=== PATIENT | male | born 1960 | race Caucasian/White ===

== ENCOUNTER 2019-06-26 20:45 | Emergency (ER) | payer MEDICAID ==
[~2019-06-26] VITALS: Ht 185.4 cm; Wt 93.2 kg
[2019-06-26 21:01] VITALS: Ht 185.4 cm; Wt 93.2 kg
[2019-06-26] MEDS ORDERED: BLOOD PRESSURE MED (21:02)
[2019-06-26] MEDS ORDERED: MUPIROCIN22 GM TOPICAL (21:47)
[2019-06-26 22:27] VITALS: BP 124/67
== END 2019-06-26 22:28 | disposition home or self-care (01) ==
LOC: D.ER 20:45
DX: S80.811A Abrasion, right lower leg, initial encounter (principal); X58.XXXA Exposure to other specified factors, initial encounter; I10 Essential (primary) hypertension

== ENCOUNTER 2019-08-08 17:53 | Inpatient (IN) | payer MEDICAID ==
[2019-08-08] VITALS (8 sets, daily range): BP systolic 88–125; BP diastolic 34–65
[~2019-08-08] VITALS: Ht 185.4 cm; Wt 108.6 kg
--- NOTE | ~2019-08-08 | EC ---
PATIENT:LUIS REGAN DATE OF SERVICE: 08/08/19 SEX: M MEDICAL RECORD: [id number] DATE OF : 62 LOCATION:[facility] D230 AGE OF PATIENT: 59 ADMISSION DATE: 08/08/19 REFERRING PHYSICIAN: INTERPRETING PHYSICIAN: ELA KRAMER MD ECHOCARDIOGRAM REPORT ECHO CHARGES 4 ECHO COMPLETE Date: 08/09/19 CLINICAL DIAGNOSIS: HYPOTENTION ECHOCARDIOGRAPHIC MEASUREMENTS (adult normal given) AC root (d.<3.7cm) 3.4 cm LV Septum d (<1.2 cm> 1.4 cm Valve Excursion 2.1 cm LV Septum (systole) 1.6 cm Left Atria (s.<4.0cm> 3.9 cm LVPW d(<1.2cm) 1.2 cm RV (d.<2.3cm) 2.2 cm LVPW (sytole) 1.4 cm LV diastole(<5.6CM) 4.3 cm MV E-F(>70mm/sec) cm LV systole 3.0 cm LVOT Diameter 1.5 cm MV exc.(>10mm) cm Est.ejection fraction (50-75%) % DOPPLER: LVIT cm/sec A 38 cm/sec E 50 cm/sec LA cm/sec RVSP 20.8 mmHg LVOT 84 cm/sec AOP1/2T m/s Asc. Ao 97 cm/sec RVOT 47 cm/sec RA cm/sec PA 66 cm/sec AV Gradient Peak 3.8 mmHg AV Mean 1.9 mmHg AV Area 1.3 cm MV Gradient Peak 1.4 mmHg MV Mean 0.7 mmHg MV Area cm COMMENTS: Pit Worker Power Shovel: Sherif RHOADES Gravedigger: 2 Dr. Mckeon TAPE# PACS Pericardial Effusion Y DATE OF SERVICE: ECHOCARDIOGRAM FINDINGS: 1. Left ventricular chamber size is within normal limits. Left ventricular systolic function is lower limits of normal at 45% to 50%. 2. Left atrium is within normal limits. Right atrium and right ventricle chamber sizes are mildly dilated. 3. Valvular structures have normal structure and motion. ECHOCARDIOGRAM REPORT [id number] LUIS REGAN 4. Doppler interrogation reveals no significant valvular insufficiency or stenosis. 5. No evidence of pericardial effusion or left ventricular thrombus. TRANSINT:[id number] Voice Confirmation ID: [id number] DOCUMENT ID: [id number] ELA KRAMER MD CC: [id number] DICTATION DATE: 08/10/19 1004 C 40A CREW CHIEF: 08/10/19 1231 ADM IN [facility] [address] [id number]
--- NOTE | ~2019-08-08 | CN ---
PATIENT NAME:LUIS REGAN MEDICAL RECORD: [id number] : 62 LOCATION:[id number] ADMIT DATE: 08/08/19 ACCOUNT: [id number] CONSULTING PHYSICIAN: ELA KRAMER MD REFERRING PHYSICIAN: ALEJANDRO GRACE MD DATE OF CONSULTATION: 08/09/2019 ADMITTING DIAGNOSES: 1. Hypotension. 2. Hypovolemic shock. 3. Abnormal ECG for ischemia. 4. Coronary artery disease. 5. Previous percutaneous transluminal coronary angioplasty stent. 6. Gastrointestinal bleed. 7. Anemia. HISTORY OF PRESENT ILLNESS: This is a gentleman who presents with esophageal varices bleeds from ETOH. He has received multiple units of blood. He remains hypotensive and remains actively bleeding. He has a history of coronary artery disease. EKG shows anterolateral ischemia. PHYSICAL EXAMINATION: CONSTITUTIONAL/GENERAL APPEARANCE: Well nourished, well developed, appears stated age. EYES: Lids and conjunctivae noninjected. No discharge. No pallor. ENT: Lips within normal limit. No cyanosis. No pallor. NECK: Carotid arteries, bilateral normal upstroke. No bruits. No thrills. No jugular venous pressure or distention. CERVICAL LYMPH NODES: Nontender. Nonenlarged. THYROID: Not enlarged. No nodules. CARDIOVASCULAR: Precordial exam, nondisplaced. No heaves or pericardial thrills. Rate and rhythm, regular. Heart sounds, normal S1, normal S2. No S3, no gallop, no rub. Systolic murmur, not heard. Diastolic murmur, not heard. RESPIRATORY: Respiratory effort, unlabored. Normal curvature. No thoracic deformity. No chest wall tenderness. Percussion, resonant. Auscultation, clear. No wheezes, no rales, no rhonchi. ABDOMEN: Soft, nondistended, nontender. No abdominal pain, no vomiting and normal appetite. MUSCULOSKELETAL: No joint tenderness, normal gait, normal tone. SKIN: Warm and dry. OVERALL IMPRESSION: Ischemia secondary to hypovolemia as well as the anemia. At this time, we will get an echocardiogram. No other cardiac workup or treatment is necessary. Overall prognosis is extremely poor. TRANSINT:[id number] Voice Confirmation ID: [id number] DOCUMENT ID: [id number] CONSULT REPORT [id number] LUIS REGAN JEFFREY MD CC: [id number] DICTATION DATE: 08/09/19 1225 FOOD SERVICES COORDINATOR: 08/09/19 181 ADM IN [place] [id number] [place] [id number]
[~2019-08-08 17:53] MED LIST: BLOOD PRESSURE MED; MUPIROCIN22 GM TOPICAL
[2019-08-08 18:22] LABS: BASOPHILS 0 % (0-2); EOSINOPHILS 0 % (0-7); HEMOGLOBIN 11.3 g/dL (13.5-17.5); IMMATURE GRANULOCYTES 0.4 % (0-5); LYMPHOCYTES 8.5 % (15-50); MCH 35.2 pg (26.0-34.0); MCHC 34.2 g/dL (31.0-37.0); MCV 102.8 fL (80.0-100.0); MEAN PLATELET VOLUME 11.8 fL (7.4-10.4); MONOCYTES 4.6 % (2-11); NEUTROPHILS 86.5 % (40-80); PLATELET COUNT 124 10x3/uL (130-400); RBC 3.21 10x6/uL (4.20-6.10); RDW 14.8 % (11.5-14.5); WBC 10.5 10x3/uL (4.8-10.8)
[2019-08-08 18:30] LABS: INR 1.52 (0.85-1.17); PROTIME 17.8 SECONDS (11.6-15.0)
[2019-08-08 18:31] LABS: APTT 32.3 SECONDS (22.8-39.4)
[2019-08-08 18:38] LABS: ANION GAP 12.7 mmol/L (8-16); CALCIUM 7.9 mg/dL (8.5-10.1); CARBON DIOXIDE 22.9 mmol/L (21.0-32.0); CREATININE - SERUM 1.2 mg/dL (0.6-1.3); POTASSIUM - SERUM 4.6 mmol/L (3.5-5.1)
[2019-08-08 18:44] LABS: BILIRUBIN - TOTAL 1.84 mg/dL (0.2-1.3); MAGNESIUM - SERUM 1.9 mg/dL (1.8-2.4); PROTEIN - SERUM 6.8 g/dL (6.4-8.2)
--- NOTE | 2019-08-08 19:01 | NUR ---
PT SITTING ON BED. PT C/O ABD PAIN AND ARTHUR. NO S/S OF ACUTE DISTRESS NOTED. PT DENIES VOMITING SINCE ARRIVAL IN ED.
--- NOTE | 2019-08-08 19:32 | NUR ---
PT LEFT ED VIA STRETCHER FOR CT.
--- NOTE | 2019-08-08 19:52 | NUR ---
PT RETURNED FROM CT VIA STRETCHER.
--- NOTE | 2019-08-08 21:27 | NUR ---
PT REPORTS PAIN HAS RETURNED AND IS WORSE THAN BEFORE. PT AWAKE AND ALERT. EDP NOTIFIED.
--- NOTE | 2019-08-08 22:51 | NUR ---
PT ACTIVELY VOMITING BLOOD AT THIS TIME, APPROX 600ML BLOODY EMESIS NOTED IN EMESIS BAG. EDP HUMBERTO NOTIFIED. CALL TO SARAH AYERS PLACED AT THIS TIME.
--- NOTE | 2019-08-08 22:55 | NUR ---
PT PLACED ON 2L O2 VIA NC. PT SITTING UPRIGHT IN BED.
--- NOTE | 2019-08-08 23:02 | NUR ---
SECOND IV STARTED TO PT L WRIST. PT TOLERATED WELL. PT UPDATED ON PLAN OF CARE.
--- NOTE | 2019-08-08 23:48 | NUR ---
RN AT BEDSIDE TO TRANSPORT PT TO ICU. PT PROCEEDED TO VOMIT 1300ML BLOODY EMESIS.
--- NOTE | 2019-08-08 23:55 | NUR ---
REC'D TO ROOM 2303 FROM ER. PT AWAKE, WEAK, PALE. ICU MONITORS ESTAB. B/P 87/47. MACHINE TOOL MECHANIC PER FLOWSHEET. NEW ORDERS REC'D.
[2019-08-09] VITALS (121 sets, daily range): BP systolic 34–161; BP diastolic 20–96; Ht 185.4 cm; Wt 108.6 kg
--- NOTE | 2019-08-09 00:30 | NUR ---
PT WITH EMESIS OF 350ML DARK RED BLOOD.
--- NOTE | 2019-08-09 00:40 | NUR ---
BEGIN BLOOD PRODUCT TRANSFUSIONS PER MD ORDER PER HOSPITAL PROTOCOL. SEE TRANSFUSION SHEETS.
--- NOTE | 2019-08-09 01:26 | NUR ---
UPDATE CALLED TO DR. READ, NEW ORDERS RECEIVED
--- NOTE | 2019-08-09 01:40 | NUR ---
OK TO INCREASE LEVOPHED TO 30 MCG/KG AT THIS TIME, PER DR READ
[2019-08-09 01:52] LABS: HEMATOCRIT 20.2 % (42.0-54.0); HEMOGLOBIN 6.6 g/dL (13.5-17.5)
--- NOTE | 2019-08-09 02:09 | NUR ---
UPDATE CALLED TO DR. READ, NEW ORDERS RECEIVED
--- NOTE | 2019-08-09 02:45 | NUR ---
DR. READ HERE. PT HR DROPPED TO 80S AND PT BECAME UNRESPONSIVE WITH AGONAL RESP. CODE BLUE CALLED AT 0250. SEE CODE BLUE SHEET.
--- NOTE | 2019-08-09 03:08 | NUR ---
SPOKE WITH LUIS STAUFFER - PT EMERGENCY CONTACT FROM [facility]. UPDATED ON PT CONDITION.
--- NOTE | 2019-08-09 03:53 | NUR ---
SPOKE WITH DAUGHTER ÁNGELA AGEE (NEXT OF KIN). UPDATED ON PT CRITICAL CONDITION. SHE IS ON HER WAY HERE FROM [place].
--- NOTE | 2019-08-09 04:02 | NUR ---
DR. GRACE UPDATED ON PT CONDITION. EGD NOW FINISHED.
--- NOTE | 2019-08-09 04:30 | NUR ---
R IJ CVL AND L RADIAL A-LINE PLACED BY Monik LERMA CRNA.
--- NOTE | 2019-08-09 05:00 | NUR ---
UPDATE CALLED TO DR. GRACE, NEW ORDERS RECIEVED
--- NOTE | 2019-08-09 05:00 | NUR ---
SEIZURE ACTIVITY NOTED, ATIVAN PER MD ORDER GIVEN. POST SEIZURE PUPILS NOTED TO BE 7 AND FIXED - DR. GRACE AWARE.
--- NOTE | 2019-08-09 06:00 | NUR ---
CONT BLOOD PRODUCTS PER MD ORDER. SEE BLOOD TRANSFUSION SHEETS.
[2019-08-09 06:35] LABS: BASOPHILS 0.2 % (0-2); EOSINOPHILS 1.2 % (0-7); HEMATOCRIT 23.6 % (42.0-54.0); IMMATURE GRANULOCYTES 7.8 % (0-5); LYMPHOCYTES 18.9 % (15-50); MCH 29.8 pg (26.0-34.0); MCHC 30.9 g/dL (31.0-37.0); MEAN PLATELET VOLUME 13.2 fL (7.4-10.4); MONOCYTES 8.9 % (2-11); RBC 2.45 10x6/uL (4.20-6.10); RDW 14.6 % (11.5-14.5); WBC 16.5 10x3/uL (4.8-10.8)
[2019-08-09 06:36] LABS: HEMOGLOBIN 7.3 g/dL (13.5-17.5); MCV 96.3 fL (80.0-100.0); PLATELET COUNT 16 10x3/uL (130-400)
[2019-08-09 06:58] LABS: CALCIUM 7.9 mg/dL (8.5-10.1); CARBON DIOXIDE 10.9 mmol/L (21.0-32.0)
--- NOTE | 2019-08-09 07:00 | NUR ---
REPORT RECEIVED. ASSESSMENT COMPLETE PER FLOW SHEET
--- NOTE | 2019-08-09 07:04 | NUR ---
PT STATUS REPORT AND CRITICAL LABS CALLED TO DR. READ. NEW ORDER REC'D.
[2019-08-09 07:06] LABS: MAGNESIUM - SERUM 2.5 mg/dL (1.8-2.4)
[2019-08-09 07:07] LABS: ANION GAP 35.1 mmol/L (8-16); CREATININE - SERUM 1.9 mg/dL (0.6-1.3); PHOSPHOROUS 12.2 mg/dL (2.5-4.9)
--- NOTE | 2019-08-09 08:10 | NUR ---
FAMILY AT BEDSIDE
--- NOTE | 2019-08-09 09:40 | NUR ---
DR READ PAGED GIVEN UPDATE. NO NEW ORDERS
--- NOTE | 2019-08-09 10:21 | NUR ---
ERIC CALLED TO NOTIFY OF PT STATUS. SPOKE WITH EDUARD. RECORDS REVIEWED. WILL HAVE A COORDINATOR CALL
[2019-08-09 10:23] LABS: HEMATOCRIT 26.6 % (42.0-54.0); HEMOGLOBIN 8.5 g/dL (13.5-17.5)
--- NOTE | 2019-08-09 10:29 | NUR ---
KAPIL REYES CALLED FOR ADDITIONAL INFORMATION. BP REVIEWED. ASKED TO BE NOTIFIED AT TOD.
--- NOTE | 2019-08-09 11:20 | NUR ---
DR HEDRICK AT BEDSIDE GIVEN UDPATE. NEW ORDERS RECEIVED. WILL ADM
[2019-08-09 12:12] LABS: INR 12.67 (0.85-1.17); PROTIME 95.3 SECONDS (11.6-15.0)
--- NOTE | 2019-08-09 12:15 | NUR ---
Critical Result Type: PT Critical Result Value: 95.3 Time Nurse Notified: 1212 Name of Physician and Time Called: DR HEDRICK 121 Physician Notified at: 1215 Physician NOT Notified with Reason: Comments: 2 U FFP ORDERED Read Back and Verified By: BLANCO DEXTER RN Critical Result Type: INR Critical Result Value: 12.67 Time Nurse Notified: 1212 Name of Physician and Time Called: DR HEDRICK 1215 Physician Notified at: 1215 Physician NOT Notified with Reason: Comments: 2 U FFP ORDERED Read Back and Verified By: BLANCO DEXTER RN Critical Result Type: PTT Critical Result Value: >200 Time Nurse Notified: 1212 Name of Physician and Time Called: DR HEDRICK 121 Physician Notified at: 1215 Physician NOT Notified with Reason: Comments: 2 U FFP ORDERED Read Back and Verified By: BLANCO DEXTER RN
--- NOTE | 2019-08-09 12:23 | NUR ---
DR KRAMER AT BEDSIDE GIVEN UDPATE. NO NEW ORDERS
--- NOTE | 2019-08-09 12:56 | NUR ---
Critical Result Type: TROPONIN Critical Result Value: 2.532 Time Nurse Notified: 1149 Name of Physician and Time Called: DR KRAMER Physician Notified at: 1210 Physician NOT Notified with Reason: Comments: ECHO ORDERED NO FURTHER NEW ORDERS AT THIS TIME Read Back and Verified By: SHAYE WAGNER/JOSÉ MANUEL VERDUGO
--- NOTE | 2019-08-09 13:15 | NUR ---
RECEIVED MED CODE ONLY STATUS FROM SISTER VERIFIED WITH SHAYE CHO RN
--- NOTE | 2019-08-09 14:50 | NUR ---
PT TO CTA AT THIS TIME
--- NOTE | 2019-08-09 15:00 | NUR ---
REASSESSMENT COMPLETE PER FLOW SHEET. NO NEW CHANGES
--- NOTE | 2019-08-09 19:00 | NUR ---
REC'D TO CARE, BLACK MILL OPERATOR PER FLOWSHEET. PT ON MECH VENT VIA OETT. UNRESPONSIVE. SBP 60-70, IVF GTTS PER FLOWSHEET - ALL MAXED. PT IS MED CODE. CM - CAF, WIDE QRS. PT EDEMATOUS, MOTTLED, AND BLEEDING FROM NOSE AND MOUTH. PIV X 2 AND L IJ CVL PRESENT WITH GTTS INFUSING. IRIZARRY CATH WITH NO OUTPUT NOTED. PULSES DOPPLERABLE. ALARMS ON AND WILL CONT POC.
--- NOTE | 2019-08-09 19:30 | NUR ---
BEGIN FFP TRANSFUSION PER MD ORDER PER HOSPITAL POLICY - SEE TRANSFUSION SHEETS.
--- NOTE | 2019-08-09 20:19 | NUR ---
SISTER AT , UPDATE GIVEN AND QUESTIONS ANWERED.
--- NOTE | 2019-08-09 22:37 | NUR ---
H/H RESULTED - STANDING ORDERS FOLLOWED.
[2019-08-09 22:57] LABS: HEMATOCRIT 10.2 % (42.0-54.0); HEMOGLOBIN 3.2 g/dL (13.5-17.5)
--- NOTE | 2019-08-09 23:03 | NUR ---
BEGIN PRBC TRANSFUSION PER MD ORDERS, PER HOSPITAL POLICY. SEE TRANSUSION SHEETS.
--- NOTE | 2019-08-09 23:15 | NUR ---
REASSESSMENT PER FLOWSHEET, PRBCS INFUSING WITHOUT DIFFICULTY, NO SIGN OF ADVERSE RXN. CONT BLEEDING FROM NOSE AND MOUTH. PADS/LINENS CHANGED NEEDED.
[2019-08-10] VITALS (45 sets, daily range): BP systolic 52–97; BP diastolic 21–84
--- NOTE | 2019-08-10 03:11 | NUR ---
REASSESSMENT PER FLOWSHEET, NO ACUTE CHANGES.
--- NOTE | 2019-08-10 03:50 | NUR ---
COMPLETE BATH AND LINEN CHANGE DONE.
--- NOTE | 2019-08-10 04:15 | NUR ---
ABGS RESULTED, FIO2 TO 60% PER R.T.
[2019-08-10 05:14] LABS: BASOPHILS 0.7 % (0-2); EOSINOPHILS 0.7 % (0-7); IMMATURE GRANULOCYTES 1.4 % (0-5); LYMPHOCYTES 26.8 % (15-50); MCH 30.3 pg (26.0-34.0); MCHC 30.6 g/dL (31.0-37.0); MEAN PLATELET VOLUME 9.7 fL (7.4-10.4); MONOCYTES 8.5 % (2-11); NEUTROPHILS 61.9 % (40-80); RDW 16.1 % (11.5-14.5)
[2019-08-10 05:27] LABS: BILIRUBIN - TOTAL 1.44 mg/dL (0.2-1.3); HEMATOCRIT 9.8 % (42.0-54.0); MAGNESIUM - SERUM 2.5 mg/dL (1.8-2.4); PLATELET COUNT 40 10x3/uL (130-400); POTASSIUM - SERUM 4.5 mmol/L (3.5-5.1); RBC 0.99 10x6/uL (4.20-6.10); WBC 1.4 10x3/uL (4.8-10.8)
--- NOTE | 2019-08-10 05:30 | NUR ---
BEGIN PRBC PER STANDING ORDER, PER HOSPITAL PROTOCOL FOR HGB 3.
[2019-08-10 05:32] LABS: PHOSPHOROUS 16.5 mg/dL (2.5-4.9)
[2019-08-10 05:33] LABS: ALBUMIN 0.3 g/dL (3.4-5.0); ANION GAP 36.6 mmol/L (8-16); CALCIUM 6.7 mg/dL (8.5-10.1); CARBON DIOXIDE 8.9 mmol/L (21.0-32.0); CREATININE - SERUM 2.4 mg/dL (0.6-1.3)
[2019-08-10 05:35] LABS: INR 13.4 (0.85-1.17); PROTIME 99.6 SECONDS (11.6-15.0)
--- NOTE | 2019-08-10 06:15 | NUR ---
DR. ALMEIDA PAGED RE: CRITICAL LABS.
--- NOTE | 2019-08-10 06:58 | NUR ---
DR READ PAGED REGAURDING CRITICAL LABS AND CRITICAL VS. AWAITING CALL BACK.
--- NOTE | 2019-08-10 07:10 | NUR ---
DR READ CALLED BACK REGAURDING H/H AND SBP50 2L LR BOLUS ORDERED AND CONTINUE WITH 2UPRBC. STATED WAS ON HIS WAY TO SPEAK WITH FAMILY
--- NOTE | 2019-08-10 07:30 | NUR ---
DR READ AT BEDSIDE GIVEN UPDATE. SPOKE TO FAMILY AT GREAT LENGTH. STATED FROM GI STANDPOINT PT TOO UNSTABLE FOR EGD OR IR TO TREAT. NURSE EXPLAINED THAT EVEN IF YOU TOOK AWAY GI BLEED PT STILL HAD A TEMP OF 78 DEGREES F AND HIS BP HAS REMAINED BELOW 60 SYSTOLIC FOR PAST 24H WITH EXTREME LIFE SAVING MEASURES AND PRESSURE MEDICATION CONTINUOUSLY INFUSING THAT THIS IN ITSELF WAS INCOMPATIBLE WITH LIFE AND WE ARE ALL UNSURE IF ORGAN DAMAGE HAS BEEN DONE OR IF PT HAS BRAIN DAMAGE R/T NO PERFUSION WITH SBP SO LOW. STATED UNDERSTANDING AND STATED UNSURE OF OPTIONS AT THIS TIME. DR READ EXPLAINED OPTIONS, SISTER PATY STATED UNDERSTANDING, BUT AT THIS TIME TO REMAIN ON CURRENT COURSE UNTIL FURTHER FAMILY ARRIVES.
--- NOTE | 2019-08-10 08:50 | NUR ---
PATY STATED AT THIS TIME "FEELS IF HE WAS GONE YESTERDAY" AND THAT SHE WAS CALLING IN SOME FAMILY AND WOULD UPDATE ME WHEN SHE WAS READY TO GO TO COMFORT MEASURES.
--- NOTE | 2019-08-10 11:55 | NUR ---
ATROPINE AND EPI HELD PER FAMILY REQUEST DNR STATUS MADE AT THIS TIME COMFORT MEASURES INITIATED. NO PULSE PRESENT HR [address] ALMEIDA PAGED GIVEN UPDATE
--- NOTE | 2019-08-10 12:10 | NUR ---
PT PRONOUNCED AT THIS TMIE
--- NOTE | 2019-08-10 12:40 | NUR ---
BILL CALLED GIVEN UPDATE REF# GIVEN
--- NOTE | 2019-08-10 12:50 | NUR ---
HOME PAGED AWAITING ARRIVAL
--- NOTE | 2019-08-10 14:50 | NUR ---
HOME AT BEDSIDE LEFT VIA GURNEY. NEEDS MET
== END 2019-08-10 15:14 | DRG 356 ==
LOC: D.ER 17:53 → D.ICU 21:33
PROVIDERS: Emergency Medicine; Family Medicine; Internal Medicine Gastroenterology; Internal Medicine Pulmonary Disease; ADMIT Internal Medicine Nephrology; ATTEND Internal Medicine Nephrology
PROC: 5A1945Z Respiratory Ventilation, 24-96 Consecutive Hours (ICD-10-PCS; 2019-08-09)
PROC: 03HY32Z Insertion of Monitoring Device into Upper Artery, Percutaneous Approach (ICD-10-PCS; 2019-08-09)
PROC: 4A133B1 Monitoring of Arterial Pressure, Peripheral, Percutaneous Approach (ICD-10-PCS; 2019-08-09)
PROC: 4A133J1 Monitoring of Arterial Pulse, Peripheral, Percutaneous Approach (ICD-10-PCS; 2019-08-09)
PROC: 05HM33Z Insertion of Infusion Device into Right Internal Jugular Vein, Percutaneous Approach (ICD-10-PCS; 2019-08-09)
PROC: 0W3P4ZZ Control Bleeding in Gastrointestinal Tract, Percutaneous Endoscopic Approach (ICD-10-PCS; principal; 2019-08-09 03:30)
DX: I85.11 Secondary esophageal varices with bleeding (principal); J96.01 Acute respiratory failure with hypoxia; D65 Disseminated intravascular coagulation [defibrination syndrome]; K76.6 Portal hypertension; D62 Acute posthemorrhagic anemia; K92.2 Gastrointestinal hemorrhage, unspecified; N17.9 Acute kidney failure, unspecified; G93.1 Anoxic brain damage, not elsewhere classified; I95.9 Hypotension, unspecified; R57.1 Hypovolemic shock; I25.10 Atherosclerotic heart disease of native coronary artery without angina pectoris; K74.60 Unspecified cirrhosis of liver; I46.9 Cardiac arrest, cause unspecified; R57.8 Other shock; I48.91 Unspecified atrial fibrillation; R68.0 Hypothermia, not associated with low environmental temperature